=== PATIENT | female | born 1960 | race African-American/Black ===

== ENCOUNTER 2017-02-21 21:06 | Emergency (ER) | payer OTHER ==
[~2017-02-21] VITALS: Ht 167.6 cm; Wt 82.7 kg
[~2017-02-21 21:06] MED LIST: FLOMAX 0.40.4 MG/CAP PO; FOLIC ACID 11 MG/TA1 PO; PREDNISONE10 MG PO; SYNTHROID0.2 MG/TAB PO; SYNTHROID200 MCG/VI PO; TREXALL10 MG PO
[2017-02-21 21:08] VITALS: TEMP 98.6
[2017-02-21] MEDS ORDERED: ZOFRAN 4MG T4 MG/TAB PO (23:00)
[2017-02-21 23:37] VITALS: BP 145/87; PULSE 91
== END 2017-02-21 23:50 | disposition home or self-care (01) ==
LOC: COL.ER 21:06
DX: M54.41 Lumbago with sciatica, right side (principal); G35 Multiple sclerosis; Z96.651 Presence of right artificial knee joint; G89.29 Other chronic pain
CPT/HCPCS: J1885

== ENCOUNTER 2017-11-19 21:23 | Emergency (ER) | payer OTHER ==
[~2017-11-19] VITALS: Ht 165.1 cm; Wt 70.9 kg
[~2017-11-19 21:23] MED LIST changes: +ZOFRAN 4MG T4 MG/TAB PO
[2017-11-19 21:30] VITALS: TEMP 98.2
[2017-11-19] MEDS ORDERED: LASIX 40MG TABL40 MG PO (21:36)
[2017-11-19 23:04] LABS: BASO % 0.2 % (0.0-2.0); EOS # 0.2 (0.0-0.7); EOS % 1.9 % (0-4.0); GRAN % 62.2 % (42.2-75.2); HEMATOCRIT 35.6 % (37.0-47.0); HEMOGLOBIN 11.8 g/dl (12.5-16.0); LYMPH # 3.3 (1.2-3.4); LYMPH % 25.6 % (20.0-51.0); MEAN CELL VOLUME 101 fl (80.0-100.0); MEAN CORPUSCULAR HEMOGLOBIN 33 pg (27.0-31.0); MEAN CORPUSCULAR HGB CONC 33 g/dl (33.0-37.0); MEAN PLATELET VOLUME 8.9 fl (7.4-10.4); MONO # 1.2 (0.1-0.6); MONO % 9.6 % (1.7-9.3); PLATELET COUNT 318 K/mm3 (130-400); RED BLOOD COUNT 3.54 M/mm3 (4.10-5.30); REDCELL DISTRIBUTION WIDTH-CV 13.7 % (11.5-14.5)
[2017-11-19 23:13] LABS: ALANINE AMINOTRANSFERASE 42 U/L (9-52); ALKALINE PHOSPHATASE 79 U/L (50-136); ANION GAP 11 mmol/L (7-16); AST,SGOT 22 U/L (15-37); BILIRUBIN,TOTAL 0.4 mg/dL (0.0-1.0); BLOOD UREA NITROGEN 15 mg/dL (7-17); CALCIUM 9.3 mg/dL (8.4-10.2); CARBON DIOXIDE 26 mmol/L (22-30); CHLORIDE 105 mmol/L (98-107); CREATININE, serum 1.06 mg/dL (0.52-1.25); GLUCOSE 90 mg/dL (74-106); POTASSIUM 3.6 mmol/L (3.4-5.0); SODIUM 141 mmol/L (137-145); TOTAL PROTEIN 6.7 gm/dL (6.4-8.2)
[2017-11-19 23:24] LABS: TROPONIN-I < 0.012 ng/mL (0.000-0.034)
[2017-11-20 01:03] LABS: COLLECTION METHOD CLEAN CATCH
[2017-11-20 01:17] LABS: MUCOUS Present /lpf; PH 5 (5-8); URINE APPEARANCE Cloudy; URINE BACTERIA Rare /hpf; URINE BILIRUBIN Negative (NEGATIVE); URINE BLOOD Negative (NEGATIVE); URINE COLOR Yellow; URINE GLUCOSE Negative (NEGATIVE); URINE KETONE Trace (NEGATIVE); URINE LEUKOCYTE ESTERASE 2+ (NEGATIVE); URINE NITRATE Negative (NEGATIVE); URINE PROTEIN(semi-quant) 1+ (NEGATIVE); URINE UROBILINOGEN >=4.0 mg/dL (NEGATIVE)
[2017-11-20] MEDS ORDERED: CEPHALEXIN500 M1 PO (01:43)
[2017-11-20] MEDS ORDERED: WHCH (01:43)
[2017-11-20 02:14] VITALS: BP 150/89; PULSE 96
== END 2017-11-20 02:26 | disposition home or self-care (01) ==
LOC: COL.ER 21:23
PROVIDERS: Emergency Medicine
DX: T84.022A Instability of internal right knee prosthesis, initial encounter (principal); N39.0 Urinary tract infection, site not specified; E03.9 Hypothyroidism, unspecified; Z87.81 Personal history of (healed) traumatic fracture; Z87.39 Personal history of other diseases of the musculoskeletal system and connective tissue; Z96.651 Presence of right artificial knee joint; Z91.81 History of falling; Z79.52 Long term (current) use of systemic steroids; W18.39XA Other fall on same level, initial encounter

== ENCOUNTER 2020-10-10 12:39 | Emergency (ER) | payer OTHER ==
[~2020-10-10] VITALS: Ht 165.1 cm; Wt 54.5 kg
[~2020-10-10 12:39] MED LIST changes: +CEPHALEXIN500 M1 PO; +CORTISPORIN OTI10 M2 OT; +LASIX 40MG TABL40 MG PO; +WHCH
[2020-10-10 12:46] VITALS: TEMP 97.1
[2020-10-10 13:33] LABS: BASO % 0.2 % (0.0-2.0); EOS # 0.2 (0.0-0.7); EOS % 3.4 % (0-4.0); GRAN # 2.6 (1.4-6.5); GRAN % 45.2 % (42.2-75.2); HEMATOCRIT 35.8 % (37.0-47.0); LYMPH # 2.5 (1.2-3.4); LYMPH % 42.9 % (20.0-51.0); MEAN CELL VOLUME 97 fl (80.0-100.0); MEAN CORPUSCULAR HEMOGLOBIN 33 pg (27.0-31.0); MEAN CORPUSCULAR HGB CONC 34 g/dl (33.0-37.0); MONO # 0.5 (0.1-0.6); MONO % 8.1 % (1.7-9.3); PLATELET COUNT 283 K/mm3 (130-400); RED BLOOD COUNT 3.69 M/mm3 (4.10-5.30); REDCELL DISTRIBUTION WIDTH-CV 15.2 % (11.5-14.5)
[2020-10-10 13:38] LABS: ALANINE AMINOTRANSFERASE 24 U/L (4-34); ALKALINE PHOSPHATASE 65 U/L (50-136); ANION GAP 9 mmol/L (7-16); AST,SGOT 58 U/L (15-37); BILIRUBIN,TOTAL 0.5 mg/dL (0.0-1.0); BLOOD UREA NITROGEN 13 mg/dL (7-17); CALCIUM 9.5 mg/dL (8.4-10.2); CARBON DIOXIDE 24 mmol/L (22-30); CHLORIDE 105 mmol/L (98-107); GLUCOSE 133 mg/dL (74-106); LIPASE 276 U/L (23-300); POTASSIUM 3.9 mmol/L (3.4-5.0); SODIUM 138 mmol/L (137-145); TOTAL PROTEIN 6.8 gm/dL (6.4-8.2)
[2020-10-10 13:52] LABS: TROPONIN-I < 0.012 ng/mL (0.000-0.035)
[2020-10-10 14:52] LABS: COLLECTION METHOD CLEAN CATCH
[2020-10-10 15:16] LABS: MUCOUS Present /lpf; PH 6 (5-8); SQUAMOUS EPITHELIAL 0-2 /hpf; URINE APPEARANCE Hazy; URINE BACTERIA None Seen /hpf; URINE BILIRUBIN Negative (NEGATIVE); URINE BLOOD Negative (NEGATIVE); URINE COLOR Yellow; URINE GLUCOSE Negative (NEGATIVE); URINE KETONE Negative (NEGATIVE); URINE LEUKOCYTE ESTERASE Negative (NEGATIVE); URINE NITRATE Negative (NEGATIVE); URINE PROTEIN(semi-quant) Negative (NEGATIVE); URINE RBC 0-2 /hpf; URINE UROBILINOGEN Negative (NEGATIVE)
[2020-10-10] MEDS ORDERED: XELJANZ XR11 MG PO (18:14)
[2020-10-10] MEDS ORDERED: MYRBETR50MG PO (18:14)
[2020-10-10] MEDS ORDERED: FOLIC ACID 11 MG/TA1 PO (18:14)
[2020-10-10 18:26] VITALS: BP 161/96; PULSE 74
== END 2020-10-10 18:26 | disposition home or self-care (01) ==
LOC: COL.ER 12:39
PROVIDERS: Physician Assistant
DX: E86.0 Dehydration (principal); R53.1 Weakness; R06.02 Shortness of breath; E03.9 Hypothyroidism, unspecified; G35 Multiple sclerosis; Z20.828 Contact with and (suspected) exposure to other viral communicable diseases; Z88.8 Allergy status to other drugs, medicaments and biological substances; Z87.891 Personal history of nicotine dependence; Z79.890 Hormone replacement therapy
CPT/HCPCS: J7120; Q9967